=== PATIENT | male | born 1945 | race Caucasian/White ===

== ENCOUNTER 2016-05-24 08:58 | Emergency (ER) | payer MEDICAID ==
[~2016-05-24] VITALS: Wt 88.0 kg
[~2016-05-24 08:58] MED LIST: ASPI-535 PO; ATOR40TA21 PO; LEVO25TA53 PO; LEVO500T72 PO; METF-480 PO; METO-448 PO; NIT4 SL; SENN-53 PO; TAMS-14 PO
--- NOTE | 2016-05-24 16:11 | ERA ---
ER Documentation Chief Complaint Date/Time DATE: 05/24/16 TIME: 16:11 Chief Complaint chest pain substernal for a few days with coughing and congestion. no n/v HPI The patient is a 71-year-old male, presenting to the ER because of intermittent dry cough, sore throat for 1 week, associated with sternal chest discomfort today. He has similar symptoms previously, denies fever, chills, neck pain, chest pain with exertion or vomiting or diaphoresis. He denies abdominal pain, nausea, vomiting, complaints of constipation, denies dysuria. He smokes socially but quit it about 5 years ago Past medical history: Diabetes mellitus, hypertension, dyslipidemia, hypothyroidism, BPH, chronic kidney disease Past surgical history: CABG ROS All systems reviewed and are negative except as per history of present illness. Medications Home Meds Active Scripts Dextromethorphan Hb-Promethazine Hcl (Promethazine DM Syrup) 473 Ml Syrup, 10 ML PO Q6H Y for COUGH, #4 OZ Prov:TAVIA GARCIA MD 05/24/16 Azithromycin* (Zithromax*) 250 Mg Tablet, 250 MG PO .ZPACK DIRECTED, #6 TAB TAKE 500 MG (2 TABS) THE FIRST DAY THEN 250 MG (1 TAB) DAYS 2-5 Prov:TAVIA GARCIA MD 05/24/16 Nitroglycerin* (Nitrostat*) 0.4 Mg Tab.subl, 1 TAB SL Q5M Y for ANGINA, #10 Prov:SHANNAN ESTRELLA 02/02/16 Sennosides* (Senna Lax*) 8.6 Mg Tablet, 1 TAB PO BID for 30 Days, TAB 2 Refills Prov:SHANNAN ESTRELLA 02/02/16 Tamsulosin Hcl* (Flomax*) 0.4 Mg Cap.er.24h, 0.4 MG PO HS for 30 Days, CAP 2 Refills Prov:SHANNAN ESTRELLA 02/02/16 Reported Medications Metoprolol Tartrate* (Lopressor*) 25 Mg Tab, 12.5 MG PO BID 05/07/12 Levothyroxine Sodium* (Levothyroxine Sodium*) 25 Mcg Tablet, 25 MCG PO AM 05/07/12 Aspirin Ec (Aspir 81) 81 Mg Tablet.dr, 81 MG PO DAILY 03/21/12 Atorvastatin (Lipitor) 40 Mg Tablet, 40 MG PO HS 03/21/12 Metformin* (Glucophage*) 850 Mg Tablet, 850 MG PO TID 03/21/12 Discontinued Scripts Levofloxacin* (Levaquin*) 500 Mg Tablet, 500 MG PO DAILY for 5 Days, TAB for bronchitis Prov:SHANNAN ESTRELLA 02/02/16 Allergies Allergies: Coded Allergies: No Known Drug Allergies (Verified Allergy, Mild, 05/24/16) PMhx/Soc History of Surgery: No Anesthesia Reaction: No Hx Neurological Disorder: No Hx Respiratory Disorders: No Hx Cardiac Disorders: Yes (HTN,OK) Hx Psychiatric Problems: No Hx Miscellaneous Medical Probl: No (HYPERLIPIDEMIA.) Hx Alcohol Use: No Hx Substance Use: No Hx Tobacco Use: No Physical Exam Vitals Vital Signs Date Time Temp Pulse Resp B/P Pulse Ox O2 Delivery O2 Flow Rate FiO2 05/24/16 18:23 98.2 70 20 149/70 100 Room Air 05/24/16 16:42 Nasal Cannula 2 05/24/16 16:42 98.2 61 20 157/80 98 Room Air 05/24/16 16:32 58 20 100 21 05/24/16 09:11 97.9 64 20 132/64 99 Physical Exam Const: No acute distress. Head: Atraumatic. Eyes: Normal Conjunctiva. ENT: Normal External Ears, Nose and Mouth. Neck: Full range of motion. No meningismus. Resp: Bilateral expiratory wheezes Cardio: Regular rate and rhythm, no murmurs. Abd: Soft, non distended, normal bowel sounds, non tender. Skin: No petechiae or rashes. Back: No midline or flank tenderness. Ext: No cyanosis, or edema. Neur: Awake and alert. No focal deficit Psych: Normal Mood and Affect. Result Diagram: 05/24/16 1630 05/24/16 1630 Results 24 hrs Laboratory Tests Test 05/24/16 16:30 Activated Partial Thromboplast Time 30.8Sec Anion Gap 16 Basophils # 0.110^3/ul Basophils % 0.5% Blood Urea Nitrogen 14mg/dl Calcium Level 9.5mg/dl Carbon Dioxide Level 30mmol/L Chloride Level 101mmol/L Creatinine 1.14mg/dl Eosinophils # 0.710^3/ul Eosinophils % 7.1% Glucose Level 131mg/dl Hematocrit 42.5% Hemoglobin 14.4g/dl INR International Normalized Ratio 0.98 Lymphocytes # 2.510^3/ul Lymphocytes % 26.5% Mean Corpuscular Hemoglobin 32.8pg Mean Corpuscular Hemoglobin Concent 33.9g/dl Mean Corpuscular Volume 96.8fl Mean Platelet Volume 7.8fl Monocytes # 0.810^3/ul Monocytes % 8.2% Neutrophils # 5.610^3/ul Neutrophils % 57.7% Nucleated Red Blood Cells # 0.010^3/ul Nucleated Red Blood Cells % 0.0/100WBC Platelet Count 26666^3/UL Potassium Level 4.1mmol/L Prothrombin Time 13.0Sec Prothrombin Time Ratio 1.0 Red Blood Count 4.3910^6/ul Red Cell Distribution Width 14.1% Sodium Level 143mmol/L Troponin I < 0.012ng/ml White Blood Count 9.610^3/ul Current Medications Medications (Trade) Dose Ordered Sig/Spencer Route PRN Reason Start Time Stop Time Status Last Admin Dose Admin Levalbuterol (Xopenex Neb) 3.75 mg ONCE ONCE [facility] 05/24/16 16:30 05/24/16 16:31 DC 05/24/16 16:31 Ipratropium [place] (Atrovent 0.02% (Neb)) 1.5 mg ONCE ONCE [facility] 05/24/16 16:30 05/24/16 16:31 DC 05/24/16 16:31 Procedures/[place] [id number] Radiology Main Line: [phone] DIAGNOSTIC IMAGING REPORT Patient: ARIANA ALEXANDER : 1945 Age: 71 Sex: M MR #: [id number] DOS: 05/24/16 1611 Ordering MD: TAVIA GARCIA MD Location: E/R Room/Bed: PROCEDURE: XR Chest. CLINICAL INDICATION: Chest pain TECHNIQUE: A single portable view of the chest was obtained. COMPARISON: 01/29/2016 FINDINGS: The cardiomediastinal silhouette is within normal limits. The left hemidiaphragm is elevated with bibasilar atelectasis. The remaining lungs and pleural spaces are clear. The soft tissues and osseous structures are unremarkable. IMPRESSION: No acute cardiopulmonary disease. Elevated left hemidiaphragm with bibasilar atelectasis. RPTAT: HPNM Markel Emery Physician Date Time Electronically viewed and signed by Markel Emery Physician on 05/24/2016 16 :52 / CC: TAVIA AGRCIA MD EKG: Read by emergency physician at 4:53 PM Rate/Rhythm: Normal Sinus Rhythm 62 beats per min QRS, ST, T-waves: No ST elevation, no T wave inversion Impression: Normal EKG EKG: Read by emergency physician at 5:47 PM Rate/Rhythm: Normal Sinus Rhythm 68 beats per min QRS, ST, T-waves: No ST elevation, no T wave inversion Impression: Normal EKG MEDICAL MAKING DECISION: The patient is a 71-year-old male, presenting with acute bronchitis with wheezing. He was treated with Xopenex 3.75 mg and Atrovent 1.5 mg nebulizer over one hour with good response. The differential diagnoses considered include but are not limited to asthma, COPD, pneumonia, pulmonary embolus, pleural effusion, congestive heart failure. Departure Diagnosis: Primary Impression: Bronchitis Condition: Good Comments He was discharged with Zithromax and Phenergan DM I discussed the findings with the patient. I advised the patient to follow-up with the primary physician in about 1-2 days, sooner if needed and return if any concern. TAVIA GARCIA MD May 24, 2016 16:11
[2016-05-24] MEDS ORDERED: IPRATROPIUM (NEB) 0.5 MG/2.5 ML AMP HHN ONE (16:30)
[2016-05-24] MEDS ORDERED: LEVALBUTEROL (NEB) 1.25 MG/0.5 ML AMP HHN ONE (16:30)
[2016-05-24 16:47] LABS: BASOPHIL # 0.1 10^3/ul (0.0-0.1); BASOPHILS % 0.5 % (0.0-2.0); EOSINOPHILS # 0.7 10^3/ul (0.0-0.5); EOSINOPHILS % 7.1 % (0.0-7.0); HEMATOCRIT 42.5 % (42.0-52.0); HEMOGLOBIN 14.4 g/dl (14.0-18.0); LYMPHOCYTES # 2.5 10^3/ul (0.8-2.9); LYMPHOCYTES % 26.5 % (15.0-51.0); MEAN CORPUSCULAR HEMOGLOBIN 32.8 pg (29.0-33.0); MEAN CORPUSCULAR HGB CONC 33.9 g/dl (32.0-37.0); MEAN CORPUSCULAR VOLUME 96.8 fl (82.0-101.0); MEAN PLATELET VOLUME 7.8 fl (7.4-10.4); MONOCYTE # 0.8 10^3/ul (0.3-0.9); MONOCYTES % 8.2 % (0.0-11.0); NEUTROPHIL # 5.6 10^3/ul (1.6-7.5); NEUTROPHILS % 57.7 % (39.0-77.0); PLATELET COUNT 292 10^3/UL (140-440); RED BLOOD COUNT 4.39 10^6/ul (4.70-6.10); RED CELL DISTRIBUTION WIDTH 14.1 % (11.5-14.5); UNCORRECTED WBC 9.6 10^3/ul (4.8-10.8); WHITE BLOOD COUNT 9.6 10^3/ul (4.8-10.8)
[2016-05-24 16:51] LABS: CONDITION 1
--- NOTE | 2016-05-24 16:53 | RADRPT ---
PROCEDURE: XR Chest. CLINICAL INDICATION: Chest pain TECHNIQUE: A single portable view of the chest was obtained. COMPARISON: 01/29/2016 FINDINGS: The cardiomediastinal silhouette is within normal limits. The left hemidiaphragm is elevated with bi basilar atelectasis. The remaining lungs and pleural spaces are clear. The soft tissues and osseous structures are unremarkable. IMPRESSION: No acute cardiopulmonary disease. Elevated left hemidiaphragm with bibasilar atelectasis. RPTAT: HPNM Physician Cindi Date Time Electronically viewed and signed by Physician Cindi on 05/24/2016 16:52 /
[2016-05-24 16:58] LABS: CHLORIDE 101 mmol/L (97-110); POTASSIUM 4.1 mmol/L (3.5-5.1); SODIUM 143 mmol/L (135-144)
[2016-05-24 16:59] LABS: INR 0.98
[2016-05-24 17:00] LABS: PARTIAL THROMBOPLASTIN TIME 30.8 Sec (25.0-35.0)
[2016-05-24 17:01] LABS: CREATININE 1.14 mg/dl (0.61-1.24)
[2016-05-24 17:02] LABS: ANION GAP 16 (8-16); BLOOD UREA NITROGEN 14 mg/dl (7-20); CALCIUM 9.5 mg/dl (8.4-10.2); CARBON DIOXIDE 30 mmol/L (21-31); GLUCOSE 131 mg/dl (70-220)
[2016-05-24 17:29] LABS: TROPONIN-I < 0.012 ng/ml (0.00-0.12)
[2016-05-24] MEDS ORDERED: AZIT250T94 PO (18:19)
[2016-05-24] MEDS ORDERED: D-ME473S18 PO (18:20)
[2016-05-24 18:23] VITALS: BP 149/70; PULSE 70; RESP 20; TEMP 98.2
== END 2016-05-24 18:20 | disposition home or self-care (01) ==
LOC: E/R 08:58
DX: J20.9 Acute bronchitis, unspecified (principal); E03.9 Hypothyroidism, unspecified; E11.9 Type 2 diabetes mellitus without complications; I12.9 Hypertensive chronic kidney disease with stage 1 through stage 4 chronic kidney disease, or unspecified chronic kidney disease; N18.9 Chronic kidney disease, unspecified; Z87.891 Personal history of nicotine dependence; Z79.84 Long term (current) use of oral hypoglycemic drugs; Z95.1 Presence of aortocoronary bypass graft; Z79.82 Long term (current) use of aspirin
CPT/HCPCS: 36415; 71010; 80048; 84484; 85025; 85610; 85730; 94644; Z7502; Z7610; 93005

== ENCOUNTER 2016-08-31 17:44 | Emergency (ER) | payer MEDICAID ==
[~2016-08-31] VITALS: Ht 162.6 cm; Wt 89.5 kg
[~2016-08-31 17:44] MED LIST changes: +AZIT250T94 PO; +D-ME473S18 PO; -LEVO500T72 PO
[2016-08-31 17:45] VITALS: Ht 162.6 cm; Wt 89.5 kg
[2016-08-31] MEDS ORDERED: ALBUTEROL 0.083% (NEB) 2.5 MG/3 ML AMP HHN STA (18:33)
[2016-08-31 18:56] LABS: ADD SCAN DIFF NO
[2016-08-31 18:57] LABS: URINE BLOOD (Dip) POC Negative (NEGATIVE)
[2016-08-31 18:59] LABS: BASOPHIL # 0.1 10^3/ul (0.0-0.1); BASOPHILS % 0.6 % (0.0-2.0); EOSINOPHILS # 0.9 10^3/ul (0.0-0.5); HEMATOCRIT 38.3 % (42.0-52.0); HEMOGLOBIN 12.8 g/dl (14.0-18.0); LYMPHOCYTES # 1.7 10^3/ul (0.8-2.9); LYMPHOCYTES % 20.1 % (15.0-51.0); MEAN CORPUSCULAR HEMOGLOBIN 32.5 pg (29.0-33.0); MEAN CORPUSCULAR HGB CONC 33.4 g/dl (32.0-37.0); MEAN CORPUSCULAR VOLUME 97.2 fl (82.0-101.0); MEAN PLATELET VOLUME 9.3 fl (7.4-10.4); MONOCYTE # 1.1 10^3/ul (0.3-0.9); MONOCYTES % 12.8 % (0.0-11.0); NEUTROPHIL # 4.8 10^3/ul (1.6-7.5); NEUTROPHILS % 55.7 % (39.0-77.0); PLATELET COUNT 222 10^3/UL (140-415); RED BLOOD COUNT 3.94 10^6/ul (4.70-6.10); RED CELL DISTRIBUTION WIDTH 13.2 % (11.5-14.5); WHITE BLOOD COUNT 8.5 10^3/ul (4.8-10.8)
[2016-08-31] MEDS ORDERED: IPRATROPIUM (NEB) 0.5 MG/2.5 ML AMP HHN ONE (19:00)
[2016-08-31 19:15] LABS: ALBUMIN 4.1 g/dl (3.3-4.9); CHLORIDE 101 mmol/L (97-110)
[2016-08-31 19:16] LABS: SODIUM 141 mmol/L (135-144)
[2016-08-31 19:18] LABS: ALBUMIN/GLOBULIN RATIO 1.07; ALKALINE PHOSPHATASE 82 IU/L (42-121); ANION GAP 18 (8-16); ASPARTATE AMINO TRANSFERASE 30 IU/L (15-46); BLOOD UREA NITROGEN 22 mg/dl (7-20); CARBON DIOXIDE 26 mmol/L (21-31); CREATININE 1.46 mg/dl (0.61-1.24); TOTAL PROTEIN 7.9 g/dl (6.1-8.1)
[2016-08-31 19:19] LABS: ALANINE AMINOTRANSFERASE 27 IU/L (13-69); CALCIUM 8.9 mg/dl (8.4-10.2); GLUCOSE 189 mg/dl (70-220)
--- NOTE | 2016-08-31 19:19 | RADRPT ---
PROCEDURE: XR Chest. CLINICAL INDICATION: Chest pain and cough TECHNIQUE: A single portable view of the chest was obtained. COMPARISON: 05/24/2016 FINDINGS: The cardiomediastinal silhouette is within normal limits. The lungs and pleural spaces are clear. The soft tissues and osseous structures are unremarkable. IMPRESSION: No acute cardiopulmonary disease. RPTAT: HPNM Physician Cindi Date Time Electronically viewed and signed by Markel Emery Physician on 08/31/2016 19:19 /
[2016-08-31 19:30] LABS: TROPONIN-I < 0.012 ng/ml (0.00-0.12)
[2016-08-31 19:34] LABS: INR 1.02; PROTIME 13.4 Sec (12.2-14.2)
[2016-08-31 19:35] LABS: PARTIAL THROMBOPLASTIN TIME 30.9 Sec (25.0-35.0)
[2016-08-31] MEDS ORDERED: AZIT250T94 PO (19:47)
[2016-08-31] MEDS ORDERED: ALBU8.5H3 INH (19:48)
[2016-08-31] MEDS ORDERED: D-ME473S18 PO (19:48)
--- NOTE | 2016-08-31 20:01 | ERD ---
ER Documentation Chief Complaint Date/Time DATE: 08/31/16 TIME: 19:54 Chief Complaint COUGH AND CHEST CONGESTION SINCE MONDAY HPI This is a 71-year-old male presents to the ER with a cough since Monday. Patient states that cough is dry and constant. He states that cough is gotten significantly worse and now he is experiencing chest pain or shortness of breath secondary to the cough. He does admit to wheezing. Cough and shortness of breath is nonexertional. He has had a fever. He denies any chills. He denies any sore throat or ear pain. ROS 12 point review of systems was done, all negative except per HPI. Medications Home Meds Active Scripts Albuterol Sulfate* (Proair HFA*) 8.5 Gm Hfa.aer.ad, 2 PUFF INH Q4, #1 INHALER Prov:ALVARO GALEANA 08/31/16 Dextromethorphan Hb-Promethazine Hcl (Promethazine DM Syrup) 473 Ml Syrup, 10 ML PO Q6H Y for COUGH, #4 OZ Prov:ALVARO GALEANA 08/31/16 Azithromycin* (Zithromax*) 250 Mg Tablet, 250 MG PO .ZPACK DIRECTED, #6 TAB TAKE 500 MG (2 TABS) THE FIRST DAY THEN 250 MG (1 TAB) DAYS 2-5 Prov:ALVARO GALEANA 08/31/16 Dextromethorphan Hb-Promethazine Hcl (Promethazine DM Syrup) 473 Ml Syrup, 10 ML PO Q6H Y for COUGH, #4 OZ Prov:TAVIA GARCIA MD 05/24/16 Azithromycin* (Zithromax*) 250 Mg Tablet, 250 MG PO .ZPACK DIRECTED, #6 TAB TAKE 500 MG (2 TABS) THE FIRST DAY THEN 250 MG (1 TAB) DAYS 2-5 Prov:TAVIA GARCIA MD 05/24/16 Nitroglycerin* (Nitrostat*) 0.4 Mg Tab.subl, 1 TAB SL Q5M Y for ANGINA, #10 Prov:SHANNAN ESTRELLA 02/02/16 Sennosides* (Senna Lax*) 8.6 Mg Tablet, 1 TAB PO BID for 30 Days, TAB 2 Refills Prov:SHANNAN ESTRELLA 02/02/16 Tamsulosin Hcl* (Flomax*) 0.4 Mg Cap.er.24h, 0.4 MG PO HS for 30 Days, CAP 2 Refills Prov:SHANNAN ESTRELLA 02/02/16 Reported Medications Metoprolol Tartrate* (Lopressor*) 25 Mg Tab, 12.5 MG PO BID 05/07/12 Levothyroxine Sodium* (Levothyroxine Sodium*) 25 Mcg Tablet, 25 MCG PO AM 05/07/12 Aspirin Ec (Aspir 81) 81 Mg Tablet.dr, 81 MG PO DAILY 03/21/12 Atorvastatin (Lipitor) 40 Mg Tablet, 40 MG PO HS 03/21/12 Metformin* (Glucophage*) 850 Mg Tablet, 850 MG PO TID 03/21/12 Allergies Allergies: Coded Allergies: No Known Drug Allergies (Verified Allergy, Mild, 08/31/16) PMhx/Soc Medical and Surgical Hx: pt denies Medical Hx, pt denies Surgical Hx History of Surgery: No Anesthesia Reaction: No Hx Neurological Disorder: No Hx Respiratory Disorders: No Hx Cardiac Disorders: Yes (HTN) Hx Psychiatric Problems: No Hx Miscellaneous Medical Probl: Yes (DM, THYROID PROBLEM) Hx Alcohol Use: Yes Hx Substance Use: No Hx Tobacco Use: Yes Smoking Status: Current every day smoker Physical Exam Vitals Vital Signs Date Time Temp Pulse Resp B/P Pulse Ox O2 Delivery O2 Flow Rate FiO2 08/31/16 19:11 70 18 94 21 08/31/16 17:45 99.4 79 20 163/72 94 Physical Exam GENERAL: The patient is well-developed, well-nourished, in no acute distress. NECK: Cervical spine is non tender with no step off. Supple, no nuchal rigidity HEENT: Atraumatic. Pupils equal, round and reactive to light. Extraocular muscles are grossly intact. Conjunctivae pink, no discharge. Bilateral tympanic membranes are clear with no evidence of erythema, effusion or dulling of the light reflex. Tonsilar erythema with no exudates or uvular deviation. Clear rhinorrhea. RESPIRATORY: Expiratory wheezes in all lung carter. No rales rhonchi or crackles. HEART: Regular rate and rhythm. No murmurs, clicks, rubs or gallops. EXTREMITIES: No clubbing or cyanosis. Full range of motion. Grossly neurovascularly intact. NEUROLOGIC: Alert and oriented. Cranial nerves II through XII are intact. SKIN: There is no rash. The skin is warm and dry. Result Diagram: 08/31/[id number]/[id number] Results 24 hrs Laboratory Tests Test 08/31/16 18:55 08/31/16 18:59 White Blood Count 8.510^3/ul Red Blood Count 3.9410^6/ul Hemoglobin 12.8g/dl Hematocrit 38.3% Mean Corpuscular Volume 97.2fl Mean Corpuscular Hemoglobin 32.5pg Mean Corpuscular Hemoglobin Concent 33.4g/dl Red Cell Distribution Width 13.2% Platelet Count 94420^3/UL Mean Platelet Volume 9.3fl Neutrophils % 55.7% Lymphocytes % 20.1% Monocytes % 12.8% Eosinophils % 10.0% Basophils % 0.6% Nucleated Red Blood Cells % 0.0/100WBC Neutrophils # 4.810^3/ul Lymphocytes # 1.710^3/ul Monocytes # 1.110^3/ul Eosinophils # 0.910^3/ul Basophils # 0.110^3/ul Nucleated Red Blood Cells # 0.010^3/ul Prothrombin Time 13.4Sec Prothrombin Time Ratio 1.0 INR International Normalized Ratio 1.02 Activated Partial Thromboplast Time 30.9Sec Sodium Level 141mmol/L Potassium Level 4.0mmol/L Chloride Level 101mmol/L Carbon Dioxide Level 26mmol/L Anion Gap 18 Blood Urea Nitrogen 22mg/dl Creatinine 1.46mg/dl Glucose Level 189mg/dl Calcium Level 8.9mg/dl Total Bilirubin 0.0mg/dl Direct Bilirubin 0.00mg/dl Indirect Bilirubin 0.0mg/dl Aspartate Amino Transf (AST/SGOT) 30IU/L Alanine Aminotransferase (ALT/SGPT) 27IU/L Alkaline Phosphatase 82IU/L Troponin I < 0.012ng/ml Total Protein 7.9g/dl Albumin 4.1g/dl Globulin 3.80g/dl Albumin/Globulin Ratio 1.07 Bedside Urine pH (LAB) 5.5 Bedside Urine Protein (LAB) Negative Bedside Urine Glucose (UA) Negative Bedside Urine Ketones (LAB) Negative Bedside Urine Blood Negative Bedside Urine Nitrite (LAB) Negative Bedside Urine Leukocyte Esterase (L Negative Current Medications Medications (Trade) Dose Ordered Sig/[place] Route PRN Reason Start Time Stop Time Status Last Admin Dose Admin Albuterol (Proventil 0.083% (Neb)) 5 mg ONCE STAT [facility] 08/31/16 18:33 08/31/16 18:36 DC 08/31/16 19:10 Ipratropium [place] (Atrovent 0.02% (Neb)) 0.5 mg ONCE ONCE [facility] 08/31/16 19:00 08/31/16 19:01 DC 08/31/16 19:10 Procedures/MDM Nebulizing treatment was done in the ER, upon reexamination patient's wheezing was much improved and he felt much better. Differential diagnosis includes but is not limited to; Viral URI, allergic rhinitis, bronchitis, pertussis,pneumonia. Patient's cough is likely bronchitis , he will be treated for possible bacterial etiology as his symptoms are worsening. At this time patient was worked up for chest pain associated to cough, even though this is likely related to severe cough. Patient does have a past medical history of cardiac infarction diabetes and hypertension. EKG was to have [address] elevation or T-wave inversion. It was read by Dr. Penn. Troponin was negative. Suspicion for cardiac etiology is low. I doubt STEMI, dissection, pneumothorax, PE, esophageal rupture, tamponade, pneumonia, pericarditis, GERD, musculoskeletal, endocarditis, anxiety, CHF. Clinical suspicion for pneumonia is low as patient appears well, is not hypoxic or in any respiratory distress. Additionally, patients physical examination is benign. Plan was discussed with patient they understand and agree. Patient needs to follow up with PCP in 1-2 days or return to ER sooner if symptoms worsen. Departure Diagnosis: Primary Impression: Bronchitis Condition: Stable Patient Instructions: Bronchitis With Wheezing (Adult) Additional Instructions: Call your primary care doctor TOMORROW for an appointment during the next 1-2 days.See the doctor sooner or return here if your condition worsens before your appointment time. ALVARO GALEANA August 31, 2016 20:00
[2016-08-31 21:01] VITALS: BP 150/70; PULSE 83; RESP 18; TEMP 99
== END 2016-08-31 20:33 | disposition home or self-care (01) ==
LOC: FTE 17:44
DX: J20.9 Acute bronchitis, unspecified (principal); I10 Essential (primary) hypertension; E11.9 Type 2 diabetes mellitus without complications; F17.210 Nicotine dependence, cigarettes, uncomplicated; R07.9 Chest pain, unspecified; Z79.82 Long term (current) use of aspirin; Z79.84 Long term (current) use of oral hypoglycemic drugs
CPT/HCPCS: 71010; 80053; 81003; 84484; 85025; 85610; 85730; 93005; 94664; Z7502; Z7610

== ENCOUNTER 2016-11-27 06:54 | Emergency (ER) | END 2016-11-27 08:42 | disposition home or self-care (01) | DX: L73.8 Other specified follicular disorders (principal); E11.9 Type 2 diabetes mellitus without complications; I10 Essential (primary) hypertension; E03.9 Hypothyroidism, unspecified; Z79.82 Long term (current) use of aspirin; Z79.84 Long term (current) use of oral hypoglycemic drugs; Z87.891 Personal history of nicotine dependence ==

== ENCOUNTER 2016-12-17 06:51 | Emergency (ER) | payer MEDICAID ==
[~2016-12-17] VITALS: Ht 152.4 cm; Wt 86.0 kg
[~2016-12-17 06:51] MED LIST changes: +ALBU8.5H3 INH; +CEPH-443 PO; +MUPI22OI2 TOP
[2016-12-17 06:59] VITALS: Ht 152.4 cm; Wt 86.0 kg
--- NOTE | 2016-12-17 07:36 | ERA ---
ER Documentation Chief Complaint Date/Time DATE: 12/17/16 TIME: 07:30 Chief Complaint COUGH AND CHEST CONGESTING X2 DAYS HPI This is a 71-year-old male with a history of diabetes and hyperlipidemia who presents to the emergency room complaining of 2 days of cough and congestion. A restaurant floor manager was used. The patient describes rhinorrhea, cough that is dry nonproductive and chest congestion. He describes chest wall pain with coughing, no exertional chest pain or pressure. No recent travel, sick contacts , antibiotics. Patient is a non-smoker. ROS All systems reviewed and are negative except as per history of present illness. Medications Home Meds Active Scripts Mupirocin* (Bactroban*) 2% -22 Gram Oint...g., 1 APPLIC TOP BID for 7 Days, EA Prov:CHICA RUDOLPH PA-C 11/27/16 Cephalexin* (Keflex*) 500 Mg Capsule, 500 MG PO TID for 7 Days, CAP Prov:CHICA RUDOLPH PA-C 11/27/16 Albuterol Sulfate* (Proair HFA*) 8.5 Gm Hfa.aer.ad, 2 PUFF INH Q4, #1 INHALER Prov:ALVARO GALEANA 08/31/16 Dextromethorphan Hb-Promethazine Hcl (Promethazine DM Syrup) 473 Ml Syrup, 10 ML PO Q6H Y for COUGH, #4 OZ Prov:ALVARO GALEANA 08/31/16 Azithromycin* (Zithromax*) 250 Mg Tablet, 250 MG PO .ZPACK DIRECTED, #6 TAB TAKE 500 MG (2 TABS) THE FIRST DAY THEN 250 MG (1 TAB) DAYS 2-5 Prov:ALVARO GALEANA 08/31/16 Dextromethorphan Hb-Promethazine Hcl (Promethazine DM Syrup) 473 Ml Syrup, 10 ML PO Q6H Y for COUGH, #4 OZ Prov:TAVIA GARCIA MD 05/24/16 Azithromycin* (Zithromax*) 250 Mg Tablet, 250 MG PO .ZPACK DIRECTED, #6 TAB TAKE 500 MG (2 TABS) THE FIRST DAY THEN 250 MG (1 TAB) DAYS 2-5 Prov:TAVIA GARCIA MD 05/24/16 Nitroglycerin* (Nitrostat*) 0.4 Mg Tab.subl, 1 TAB SL Q5M Y for ANGINA, #10 Prov:SHANNAN ESTRELLA. 02/02/16 Sennosides* (Senna Lax*) 8.6 Mg Tablet, 1 TAB PO BID for 30 Days, TAB 2 Refills Prov:SHANNAN ESTRELLA. 02/02/16 Tamsulosin Hcl* (Flomax*) 0.4 Mg Cap.er.24h, 0.4 MG PO HS for 30 Days, CAP 2 Refills Prov:SHANNAN ESTRELLA. 02/02/16 Reported Medications Metoprolol Tartrate* (Lopressor*) 25 Mg Tab, 12.5 MG PO BID 05/07/12 Levothyroxine Sodium* (Levothyroxine Sodium*) 25 Mcg Tablet, 25 MCG PO AM 05/07/12 Aspirin Ec (Aspir 81) 81 Mg Tablet.dr, 81 MG PO DAILY 03/21/12 Atorvastatin (Lipitor) 40 Mg Tablet, 40 MG PO HS 03/21/12 Metformin* (Glucophage*) 850 Mg Tablet, 850 MG PO TID 03/21/12 Allergies Allergies: Coded Allergies: No Known Drug Allergies (Verified Allergy, Mild, 08/31/16) PMhx/Soc History of Surgery: No Anesthesia Reaction: No Hx Neurological Disorder: No Hx Respiratory Disorders: No Hx Cardiac Disorders: Yes (HTN) Hx Psychiatric Problems: No Hx Miscellaneous Medical Probl: Yes (DM, THYROID PROBLEM cholesterol) Hx Alcohol Use: Yes Hx Substance Use: No Hx Tobacco Use: No Smoking Status: Unknown if ever smoked FmHx Family History: diabetes Physical Exam Vitals Vital Signs Date Time Temp Pulse Resp B/P Pulse Ox O2 Delivery O2 Flow Rate FiO2 12/17/16 06:59 98.1 59 20 147/67 97 Physical Exam General: Well developed, well nourished, no acute distress, Cough, dry Head: Normocephalic, atraumatic. Eyes: Pupils equally reactive, EOM intact ENT: Moist mucous membranes Neck: Supple, no lymphadenopathy Respiratory:Scattered rhonchi bilaterally that clears with coughing, no distress , no retractions Cardiovascular: RRR, no murmurs, rubs, or gallops Abdominal: Soft, non-tender, non-distended, no peritoneal signs : Deferred MSK: No edema, no unilateral swelling, 5/5 strength Neurologic: Alert and oriented, moving all extremities, normal speech, no focal weakness, no cerebellar signs Skin: No rash Psych: Normal mood Procedures/MDM EKG, MONITORS, & DIAGNOSTIC IMAGING: Chest x-ray: I reviewed and interpreted a 1 view of the chest Mediastinum: No enlargement Cardiac silhouette: No cardiomegaly Airspace: Clear lung carter bilaterally without evidence of pneumothorax Bones: No evidence of fracture EKG: I reviewed and interpreted a 12-lead EKG. Rhythm: Normal sinus rhythm Ectopy: None Intervals: No abnormalities ST segments: No elevations or depressions T waves: No contiguous inversions MEDICAL DECISION MAKING: This is a very pleasant 71-year-old male with cough congestion for approximately 2 days. The patient's chest pain is very descriptive of chest wall pain secondary to cough. I do not believe this is consistent with cardiac etiology such as CHF, acute coronary syndrome. No signs or symptoms concerning for pulmonary embolism. The patient has normal vital signs and is resting comfortably. X-ray imaging appropriate. He is also asking for medication refill including metformin and atorvastatin ER COURSE: The patient continues to be well-appearing his chest x-ray shows no evidence of acute process. At this time I feel the patient can be safely discharged home with symptom control. No indication for antibiotics this is likely secondary to viral process and acute bronchitis. I kept the patient and/or family informed of laboratory and diagnostic imaging results throughout the emergency room course. DISPOSITION PLAN: We discussed follow up with the patient's primary care doctor within 24 to 48 hours as needed. We also discussed return to the emergency room for worsening symptoms or worsening condition. Outpatient referral: [None required] Discharge Medications: Albuterol, Tylenol Departure Diagnosis: Primary Impression: Viral syndrome Additional Impression: Acute bronchitis Qualified Code: J20.9 - Acute bronchitis, unspecified organism Condition: Stable LA VALDOVINOS MD Dec 17, 2016 07:36
--- NOTE | 2016-12-17 07:44 | RADRPT ---
PROCEDURE: CHEST - 1 VIEW CLINICAL INDICATION: 71-year-old male with chest pain, cough and congestion. TECHNIQUE: A single frontal AP semi-erect view of the chest was performed. The images were review ed on a PACS workstation. COMPARISON: Chest x-ray May 24, 2016. FINDINGS: The cardiomediastinal silhouette is within normal limits. There is a shallow inspiration. There is minimal bibasilar subsegmental atelectasis. There is no evidence for an infiltrate. There is no e vidence for congestive heart failure. There is no evidence for pneumothorax. The osseous structures are intact. IMPRESSION: Shallow inspiration with minimal bibasilar subsegmental atelectasis. .Beka Gupta MD, MD Date Time Electronically viewed and signed by .Beka Gupta MD, on 12/17/2016 07:44 .M/
[2016-12-17] MEDS ORDERED: ALBU18HF INHALATION (08:13)
[2016-12-17] MEDS ORDERED: ACET500C5 PO (08:13)
[2016-12-17] MEDS ORDERED: METF850T PO (08:19)
[2016-12-17] MEDS ORDERED: ATOR10TA65 PO (08:19)
== END 2016-12-17 08:29 | disposition home or self-care (01) ==
LOC: E/R 06:51
DX: B34.9 Viral infection, unspecified (principal); J20.9 Acute bronchitis, unspecified; I10 Essential (primary) hypertension; E11.9 Type 2 diabetes mellitus without complications; Z79.82 Long term (current) use of aspirin; Z79.84 Long term (current) use of oral hypoglycemic drugs
CPT/HCPCS: 71010; 93005; Z7502

== ENCOUNTER 2018-07-13 07:37 | Emergency (ER) | payer SELFPAY ==
[~2018-07-13] VITALS: Wt 86.7 kg
[~2018-07-13 07:37] MED LIST changes: +ACET500C5 PO; +ALBU18HF INHALATION; -ALBU8.5H3 INH; +ALBU8.5H8 INH; +ATOR10TA65 PO; +AZIT250T PO; -AZIT250T94 PO; -LEVO25TA53 PO; +LEVO25TA6 PO; +METF850T13 PO; -NIT4 SL; +NITR0.4T39 SL; +SENN-120 PO; -SENN-53 PO
[2018-07-13] MEDS ORDERED: SOD CHLORIDE 0.9% 1,000 ML IV STA (07:51)
[2018-07-13] MEDS ORDERED: ASPIRIN 325 MG TAB PO ONE (08:00)
[2018-07-13] MEDS ORDERED: ALBUTEROL 0.083% (NEB) 2.5 MG/3 ML AMP NEB STA (09:15)
[2018-07-13] MEDS ORDERED: IPRATROPIUM (NEB) 0.5 MG/2.5 ML AMP NEB STA (09:15)
[2018-07-13] MEDS ORDERED: DOCU-144 PO (09:18)
[2018-07-13] MEDS ORDERED: AMOX1TAB9 PO (09:18)
[2018-07-13] MEDS ORDERED: LEVO112T57 PO (09:18)
[2018-07-13] MEDS ORDERED: CHOL100062 PO (09:18)
[2018-07-13] MEDS ORDERED: FER325 PO (09:18)
[2018-07-13] MEDS ORDERED: PROM6.2515 PO (09:18)
[2018-07-13] MEDS ORDERED: LORA10TA3 PO (09:18)
[2018-07-13] MEDS ORDERED: LISI-471 PO (09:18)
[2018-07-13] MEDS ORDERED: GLIP10TA14 PO (09:18)
[2018-07-13] MEDS ORDERED: GABA300C16 PO (09:18)
--- NOTE | 2018-07-13 09:28 | ERD ---
ER Documentation Chief Complaint Chief Complaint cough with cwp worse at night, hx of pneumonia HPI This is a 73-year-old male with a past medical history of hypertension and [id number] diabetes mellitus. The patient states that for the past week he has been having a productive cough. He has been producing whitish sput um. He has had no fever no shaking or chills. He denies any recent travel or prolonged immobilization. The patient indicates that whenever he coughs he experiences bilateral chest pain. He states he has no chest pressure that radiates to the neck arm back or jaw. He denied any associated symptoms of nausea vomiting or diaphoresis. He states he has had similar episodes roughly 1 year ago when he was diagnosed with pneumonia. He said no recent hospitalizations or sick contacts. ROS All systems reviewed and are negative except as per history of present illness. Medications Home Meds Active Scripts Metformin Hcl* (Metformin Hcl*) 850 Mg Tablet, 850 MG PO TID for 30 Days, TAB Prov:LA VALDOVINOS MD 12/17/16 Atorvastatin Calcium (Atorvastatin Calcium) 10 Mg Tablet, 10 MG PO QHS, #30 TAB Prov:LA VALDOVINOS MD 12/17/16 Acetaminophen* (Tylophen*) 500 Mg Capsule, 1 CAP PO Q6H PRN for PAIN AND OR ELEVATED TEMP, #20 CAP Prov:LA VALDOVINOS MD 12/17/16 Albuterol Sulfate* (Ventolin HFA*) 18 Gm Hfa.aer.ad, 2 PUFF INHALATION Q4H, #1 INHALER Prov:LA VALDOVINOS MD 12/17/16 Mupirocin* (Bactroban*) 2% -22 Gram Oint...g., 1 APPLIC TOP BID for 7 Days, EA Prov:CHICA RUDOLPH PA-C 11/27/16 Cephalexin* (Keflex*) 500 Mg Capsule, 500 MG PO TID for 7 Days, CAP Prov:CHICA RUDOLPH PA-C 11/27/16 Albuterol Sulfate* (Proair HFA*) 8.5 Gm Hfa.aer.ad, 2 PUFF INH Q4, #1 INHALER Prov:ALVARO GALEANA 08/31/16 Dextromethorphan Hb-Promethazine Hcl (Promethazine DM Syrup) 473 Ml Syrup, 10 ML PO Q6H PRN for COUGH, #4 OZ Prov:ALVARO GALEANA 08/31/16 Azithromycin* (Zithromax*) 250 Mg Tablet, 250 MG PO .ZPACK DIRECTED, #6 TAB TAKE 500 MG (2 TABS) THE FIRST DAY THEN 250 MG (1 TAB) DAYS 2-5 Prov:ALVARO GALEANA 08/31/16 Dextromethorphan Hb-Promethazine Hcl (Promethazine DM Syrup) 473 Ml Syrup, 10 ML PO Q6H PRN for COUGH, #4 OZ Prov:TAVIA GARCIA MD 05/24/16 Azithromycin* (Zithromax*) 250 Mg Tablet, 250 MG PO .ZPACK DIRECTED, #6 TAB TAKE 500 MG (2 TABS) THE FIRST DAY THEN 250 MG (1 TAB) DAYS 2-5 Prov:TAVIA GARCIA MD 05/24/16 Nitroglycerin* (Nitrostat*) 0.4 Mg Tab.subl, 1 TAB SL Q5M PRN for ANGINA, #10 Prov:SHANNAN ESTRELLA 02/02/16 Sennosides* (Senna Lax*) 8.6 Mg Tablet, 1 TAB PO BID for 30 Days, TAB 2 Refills Prov:SHANNAN ESTRELLA 02/02/16 Tamsulosin Hcl* (Flomax*) 0.4 Mg Cap.er.24h, 0.4 MG PO HS for 30 Days, CAP 2 Refills Prov:SHANNAN ESTRELLA 02/02/16 Reported Medications Metoprolol Tartrate* (Lopressor*) 25 Mg Tab, 12.5 MG PO BID 05/07/12 Levothyroxine Sodium* (Levothyroxine Sodium*) 25 Mcg Tablet, 25 MCG PO AM 05/07/12 Aspirin Ec (Aspir 81) 81 Mg Tablet.dr, 81 MG PO DAILY 03/21/12 Atorvastatin (Lipitor) 40 Mg Tablet, 40 MG PO HS 03/21/12 Metformin* (Glucophage*) 850 Mg Tablet, 850 MG PO TID 03/21/12 Allergies Allergies: Coded Allergies: No Known Drug Allergies (Verified Allergy, Mild, 07/13/18) PMhx/Soc Medical and Surgical Hx: pt denies Surgical Hx History of Surgery: No Anesthesia Reaction: No Hx Neurological Disorder: No Hx Respiratory Disorders: No Hx Cardiac Disorders: Yes (HTN) Hx Psychiatric Problems: No Hx Miscellaneous Medical Probl: Yes (DM, THYROID PROBLEM cholesterol) Hx Alcohol Use: Yes Hx Substance Use: No Hx Tobacco Use: No Smoking Status: Unknown if ever smoked Physical Exam Vitals Vital Signs Date Temp Pulse Resp B/P (MAP) Pulse Ox O2 O2 Flow FiO2 Time Delivery Rate 07/13/18 97.7 68 20 101/59 96 07:39 (73) Physical Exam Constitutional:Well-developed. Well-nourished. HEENT:Normocephalic. Atraumatic.Pupils were equal round reactive to light. Moist mucous membranes.No tonsillar exudates. Neck: No nuchal rigidity. No lymphadenopathy. No posterior cervical spine tenderness or step-offs. Respiratory: Not using accessory muscles of respiration.Lungs were clear to auscultation bilaterally. No rhonchi. No rales. Mild wheezing bilaterally Cardiovascular: Regular rate regular rhythm.No murmurs. No rubs were appreciated.S1, S2 normal. Distal pulses are palpable 2+ bilaterally. Bilateral reproducible chest wall tenderness GI: Abdomen was soft. Nontender. Non Distended. No pulsatile abdominal masses or bruits. No rebound. No guarding. Bowel sounds were present and normal. Muscle skeletal: Full range of motion of both the upper and lower extremities bilaterally.Normal muscle tone.No assymetrical calf tenderness or swelling. Skin: No petechia, no purpura. No lesions on the palms or the soles of the feet. No maculopapular rash. NEURO: Patient was alert, awake, orientated x3.No facial droop. Gait observed and normal with no ataxia.Speech had regular rate and rhythm. No focal neurol ogical deficits. Result Diagram: 07/13/18 0802 07/13/18 0802 Results 24 hrs Laboratory Tests Test 07/13/18 08:02 White Blood Count 11.0 10^3/ul Red Blood Count 3.82 10^6/ul Hemoglobin 12.1 g/dl Hematocrit 37.1 % Mean Corpuscular Volume 97.1 fl Mean Corpuscular Hemoglobin 31.7 pg Mean Corpuscular Hemoglobin Concent 32.6 g/dl Red Cell Distribution Width 13.2 % Platelet Count 378 10^3/UL Mean Platelet Volume 9.1 fl Immature Granulocytes % 2.300 % Neutrophils % 65.2 % Lymphocytes % 19.5 % Monocytes % 8.7 % Eosinophils % 3.5 % Basophils % 0.8 % Nucleated Red Blood Cells % 0.0 /100WBC Immature Granulocytes # 0.250 10^3/ul Neutrophils # 7.2 10^3/ul Lymphocytes # 2.2 10^3/ul Monocytes # 1.0 10^3/ul Eosinophils # 0.4 10^3/ul Basophils # 0.1 10^3/ul Nucleated Red Blood Cells # 0.0 10^3/ul Prothrombin Time 14.1 Sec Prothrombin Time Ratio 1.1 INR International Normalized Ratio 1.08 Activated Partial Thromboplast Time 37.7 Sec Sodium Level 142 mmol/L Potassium Level 4.4 mmol/L Chloride Level 106 mmol/L Carbon Dioxide Level 23 mmol/L Anion Gap 13 Blood Urea Nitrogen 27 mg/dl Creatinine 1.97 mg/dl Est Glomerular Filtrat Rate mL/min mL/min Glucose Level 112 mg/dl Calcium Level 8.9 mg/dl Total Bilirubin 0.2 mg/dl Direct Bilirubin 0.00 mg/dl Indirect Bilirubin 0.2 mg/dl Aspartate Amino Transf (AST/SGOT) 36 IU/L Alanine Aminotransferase (ALT/SGPT) 28 IU/L Alkaline Phosphatase 102 IU/L Troponin I < 0.012 ng/ml B-Type Natriuretic Peptide 282 PG/ML Total Protein 7.9 g/dl Albumin 3.8 g/dl Globulin 4.10 g/dl Albumin/Globulin Ratio 0.92 Current Medications Medications Dose Sig/Spencer Start Time Status Last (Trade) Ordered Route PRN Stop Time Admin Dose Reason Admin Sodium 1,000 ml @ Q1H STAT 07/13/18 DC 07/13/18 Chloride 1,000 mls/hr IV 07:51 08:17 07/13/18 08:50 Aspirin 325 mg ONCE ONCE 07/13/18 DC 07/13/18 (Aspirin) PO 08:00 08:17 07/13/18 08:01 Benzonatate 100 mg ONCE ONCE 07/13/18 UNV (Tessalon) PO 09:30 07/13/18 09:31 Procedures/MDM The patient presented to the emergency department complaining of chest pain. My clinical evaluation and workup was to distinguish minor causes of chest pain fr om acute life threatening cardiopulmonary causes such as myocardial infarction, pulmonary embolism, aortic dissection, esophageal rupture, cardiac tamponade, The patient was placed on a biscuit factory worker, continuous pulse oximetry and IV access established by nursing staff. The patient was given 325 mg of aspirin however my clinical suspicion was low for myocardial infarctions the patient presented to the emergency department with pleuritic chest pain. 12 Lead EKG tracing ordered and reviewed by myself showed: Sinus bradycardia 59 bpm and no arrhythmia. NV interval normal. QRS duration normal. No ST segment elevation No ST segment depression. No changes consistent with acute ischemia. I obtained a 1 view chest radiograph there is no evidence of pneumonia or pneumothorax. The patient no severe electrolyte abnormalities. There is no evidence of myocardial ischemia his cardiac troponin and EKG are within normal limits. I did feel the patient symptoms likely result of acute bronchitis. The patient did not receive steroids given that he has a history of diabetes and this could lead to hyperglycemia. He did receive nebulizer treatments and antitussives. The patient had improvement of his symptoms I did feel can be safely discharged home with azithromycin and Tessalon Perles. He has received a nebulizer treatment in the emergency department had complete resolution of his wheezing. The patient was discharged home in fair condition. They were instructed to return to the emergency department at any time if there was any worsening of their condition. The patient stated they would follow up with their PCP in the next 24-48 hours to initiate a suitable medication regimen under the care of their PCP as well as to allow their PCP to monitor any drug reactions. The patient was discharged home with prescriptions after they gave informed consent to the new medication. They were also fully informed by myself on the adverse effects and adverse drug interactions in order to provide adequate safeguards to prevent possible adverse reactions to medications. The patients chest pain was reproduced by palpation and horizontal flexion of the arms. It was my clinical impression that the pain was a result of inflammation of the skin and subcutaneous structures of the chest wall versus myocardial ischemia. I felt the patient had low-risk chest pain and could therefore be safely discharged with close follow-up. Departure Diagnosis: Primary Impression: Pleuritic chest pain Additional Impression: Acute bronchitis Bronchitis organism: unspecified organism Qualified Codes: J20.9 - Acute bronchitis, unspecified Condition: Fair JOCELYN HOPPER MD Jul 13, 2018 09:28
[2018-07-13] MEDS ORDERED: BENZONATATE 100 MG CAP PO ONE (09:30)
[2018-07-13] MEDS ORDERED: ALBU8.5H8 INH (09:33)
[2018-07-13] MEDS ORDERED: BENZ-6 PO (09:33)
[2018-07-13] MEDS ORDERED: AZIT250T PO (09:33)
[2018-07-13 10:28] VITALS: BP 117/78; PULSE 67; RESP 18
== END 2018-07-13 10:29 | disposition home or self-care (01) ==
LOC: E/R 07:37
DX: J20.9 Acute bronchitis, unspecified (principal); R07.81 Pleurodynia; I10 Essential (primary) hypertension; E11.9 Type 2 diabetes mellitus without complications; Z79.82 Long term (current) use of aspirin; Z79.84 Long term (current) use of oral hypoglycemic drugs
CPT/HCPCS: 71045; 80053; 83880; 84484; 85025; 85610; 85730; 87040; 87400; 93005; 94664; J7030